=== PATIENT | male | born 1960 | race Caucasian/White ===

== ENCOUNTER 2023-05-09 23:10 | Emergency (ER) | payer MEDICAID, OTHER ==
[~2023-05-09] VITALS: Ht 170.2 cm; Wt 74.0 kg
[2023-05-09 23:12] VITALS: O2SAT 94
[2023-05-10] MEDS ORDERED: ONDANSETRON 4MG ODT PO STA (00:22)
[2023-05-10] MEDS ORDERED: FOLIC ACID 1 MG, THIAMINE HCL 100 MG, MVI, ADULT NO.1 10 ML in DEXTROSE 5% WATER 1,000 ML IV ONE ×4 (00:30)
[2023-05-10 00:35] LABS: BASOPHILS % 0.4 % (0.0-2.0); EOSINOPHILS % 0.2 % (0.0-5.0); HEMATOCRIT. 47.1 % (42.0-52.0); HEMOGLOBIN. 16.7 g/dL (14.0-18.0); LYMPHOCYTES % 30.1 % (20.0-50.0); MEAN CORPUSCULAR HEMOGLOBIN 31.5 pg (28.0-32.0); MEAN CORPUSCULAR VOLUME 88.8 fL (80.0-94.0); MEAN PLATELET VOLUME 7.5 fl (7.4-10.4); MONOCYTES % 9.4 % (2.0-8.0); NEUTROPHILS % 59.9 % (40.0-76.0); PLATELET 219 x1000/uL (130-400); RED BLOOD CELL COUNT 5.31 mill/uL (4.7-6.1); RED CELL DISTRIBUTION WIDTH 13.6 % (11.6-14.6)
[2023-05-10 00:42] LABS: CHLORIDE 99 mEq/L (98-107)
[2023-05-10 05:23] VITALS: BP 106/61; PULSE 96; RESP 15; TEMP 98
== END 2023-05-10 05:24 | disposition home or self-care (01) ==
LOC: ER 23:20
DX: F10.20 Alcohol dependence, uncomplicated (principal); Y90.9 Presence of alcohol in blood, level not specified
CPT/HCPCS: 99284; 80053; 85025; 36415; 96365; 96366; J3490 ×2; J3411; J7070; Z7610

== ENCOUNTER 2023-05-10 05:30 | Inpatient (IN) | payer MEDICAID, OTHER ==
[~2023-05-10] VITALS: Ht 167.6 cm; Wt 70.8 kg
[2023-05-10] MEDS ORDERED: LORAZEPAM 2MG/ML CPJ IV ONE (06:45)
[2023-05-10] MEDS ORDERED: CHLORDIAZEPOXIDE 25MG CAPSULE PO ONE (06:45)
[2023-05-10 06:47] LABS: BASOPHILS % 0.7 % (0.0-2.0); EOSINOPHILS % 0.4 % (0.0-5.0); HEMATOCRIT. 46.7 % (42.0-52.0); HEMOGLOBIN. 16.5 g/dL (14.0-18.0); LYMPHOCYTES % 33.9 % (20.0-50.0); MEAN CORPUSCULAR HEMOGLOBIN 31.7 pg (28.0-32.0); MEAN CORPUSCULAR VOLUME 89.5 fL (80.0-94.0); MEAN PLATELET VOLUME 7.8 fl (7.4-10.4); MONOCYTES % 11.2 % (2.0-8.0); NEUTROPHILS % 53.8 % (40.0-76.0); PLATELET 217 x1000/uL (130-400); RED BLOOD CELL COUNT 5.21 mill/uL (4.7-6.1); RED CELL DISTRIBUTION WIDTH 13.9 % (11.6-14.6)
[2023-05-10 06:57] LABS: CHLORIDE 99 mEq/L (98-107)
[2023-05-10 07:04] LABS: ETHANOL BLOOD 132 mg/dL (-10)
[2023-05-10 08:38] LABS: CLARITY URINE CLEAR (CLEAR); COLOR URINE YELLOW (YELLOW); KETONES URINE TRACE (NEGATIVE); LEUKOCYTE ESTERASE URINE NEGATIVE (NEGATIVE); NITRITE URINE NEGATIVE (NEGATIVE); OCCULT BLOOD URINE 1+ (NEGATIVE); PROTEIN URINE 1+ (NEGATIVE); SPECIFIC GRAVITY URINE 1.019 (1.005-1.030)
[2023-05-10] MEDS ORDERED: CHLORDIAZEPOXIDE 25MG CAPSULE PO NR (09:15)
[2023-05-10] MEDS ORDERED: LORAZEPAM 2MG/ML CPJ IV NR (09:15)
[2023-05-10] MEDS ORDERED: ONDANSETRON HCL 4MG/2ML INJ IV PRN (13:00)
[2023-05-10] MEDS ORDERED: ACETAMINOPHEN 325MG TABLET PO PRN (13:00)
[2023-05-10] MEDS ORDERED: LORAZEPAM 2MG/ML CPJ IV PRN (13:00)
[2023-05-10] MEDS ORDERED: FOLIC ACID 1 MG, THIAMINE HCL 100 MG, MVI, ADULT NO.1 10 ML in DEXTROSE 5% WATER 1,000 ML IV ONE ×4 (14:00)
[2023-05-10] MEDS: CHLORDIAZEPOXIDE 25MG CAPSULE PO SCH ×2 (15:37→21:03)
[2023-05-10 16:20] VITALS: BP_SYST 144; BP_SYST 148; BP_DIAS 89; PULSE 105; RESP 21; TEMP 98.4
[2023-05-10] MEDS ORDERED: POTASSIUM CHLORIDE 20MEQ/PACKET PO NR (19:15)
[2023-05-10 20:00] VITALS: BP 147/78; PULSE 93; RESP 20; TEMP 97.9
[2023-05-11] VITALS: BP 113/73; PULSE 78; RESP 18; TEMP 99.5
[2023-05-11 04:00] VITALS: BP 110/70; PULSE 81; RESP 18; TEMP 100
[2023-05-11] MEDS: CHLORDIAZEPOXIDE 25MG CAPSULE PO SCH ×2 (05:17→13:34)
[2023-05-11 08:00] VITALS: BP 123/81; PULSE 83; RESP 18; TEMP 97.7
[2023-05-11 12:00] VITALS: BP 123/87; PULSE 86; RESP 18; TEMP 97.5
[2023-05-11 14:23] VITALS: BP 123/87; PULSE 86; TEMP 97.5; O2SAT 96
== END 2023-05-11 17:57 | disposition home or self-care (01) | DRG 48 ==
LOC: ER 05:30 → 8WST 08:46
PROVIDERS: ADMIT Internal Medicine; ATTEND Internal Medicine
DX: G90.8 Other disorders of autonomic nervous system (principal); E87.1 Hypo-osmolality and hyponatremia; K76.0 Fatty (change of) liver, not elsewhere classified; K82.8 Other specified diseases of gallbladder; F10.229 Alcohol dependence with intoxication, unspecified; F10.239 Alcohol dependence with withdrawal, unspecified; E87.6 Hypokalemia
CPT/HCPCS: 36415; 71045; 76705; 80053; 80320; 81003; 85025; 99291; J2060; J3411; J3490; J7070; G0480